=== PATIENT | male | born 1980 | race Caucasian/White ===

== ENCOUNTER 2024-10-30 04:16 | Emergency (ER) | payer MEDICARE, MEDICAID ==
[2024-10-30] MEDS ORDERED: Sodium Chloride 0.9% 10 ML Syringe FLUSH PRN (04:47)
[2024-10-30 05:04] LABS: BASOPHILS PERCENT AUTO 0.2 % (0.0-1.0); EOSINOPHILS PERCENT AUTO 0.3 % (1.0-3.0); HEMATOCRIT 42.3 % (40.0-54.0); LYMPHOCYTES PERCENT AUTO 16.2 % (20.5-50.1); MEAN CORPUSCULAR HEMOGLOBIN 31.8 pg (27.0-34.0); MEAN CORPUSCULAR HGB CONC 33.1 g/dL (33.0-35.0); MEAN CORPUSCULAR VOLUME 96.1 fL (80-100); MONOCYTES PERCENT AUTO 8.4 % (2-8); NEUTROPHILS PERCENT AUTO 74.9 % (42.2-75.2); PLATELET COUNT,PLT 294 10^3/uL (150-450); WHITE BLOOD CELL COUNT,WBC 8.8 10^3/uL (5.0-10.0)
[2024-10-30] MEDS: Lactated Ringers 1,000 ML IV ONE (05:18)
[2024-10-30] MEDS: Sertraline 50 MG Tab PO ONE (05:23)
[2024-10-30 05:24] LABS: A/G RATIO 1.2; ALANINE AMINOTRANSFERASE,ALT 18 U/L (16-63); ALBUMIN 3.9 g/dL (3.4-5.0); ALKALINE PHOSPHATASE 24 U/L (46-116); ANION GAP 16.8 mEq/L (7-13); ASPARTATE AMNIOTRANSFERASE,AST 13 U/L (15-37); BILIRUBIN TOTAL 0.9 mg/dL (0.2-1.0); BLOOD UREA NITROGEN,BUN 17 mg/dL (7-18); CALCIUM 9.6 mg/dL (8.5-10.1); CARBON DIOXIDE,CO2 27 mmol/L (21-32); CHLORIDE,CL 100 mmol/L (98-107); CREATININE 1.13 mg/dL (0.70-1.30); EST CRCL DRUG DOSING (CG) 74.31 mL/min; GLUCOSE RANDOM 97 mg/dL (70-99); MAGNESIUM 1.9 mg/dL (1.8-2.4); POTASSIUM,K 3.8 mmol/L (3.5-5.1); PROTEIN TOTAL,TP 7.1 g/dL (6.4-8.2); SODIUM,NA 140 mmol/L (136-145)
[2024-10-30 05:32] LABS: ESTIMATED GFR 83 mL/min (>=60); ETHANOL BLOOD MEDICAL < 3 mg/dL (0)
[2024-10-30 06:04] VITALS: BP 124/86; PULSE 65
== END 2024-10-30 05:45 ==
LOC: DL.ED 04:16
DX: R56.9 Unspecified convulsions (principal); R55 Syncope and collapse; F10.10 Alcohol abuse, uncomplicated; F33.9 Major depressive disorder, recurrent, unspecified; L20.9 Atopic dermatitis, unspecified; F17.210 Nicotine dependence, cigarettes, uncomplicated; F17.290 Nicotine dependence, other tobacco product, uncomplicated; Z79.899 Other long term (current) drug therapy
CPT/HCPCS: 36415; 80053; 80307; 83735; 85025; 96360; 99284; A9270; J7120